=== PATIENT | female | born 1940 | race Caucasian/White ===

== ENCOUNTER → 2020-04-07 | Outpatient (CLI) | payer MEDICARE | END | disposition home or self-care (01) | LOC: LABWHC1 08:47 | PROVIDERS: ATTEND Internal Medicine Gastroenterology | DX: Z11.59 Encounter for screening for other viral diseases (principal) | CPT/HCPCS: 87635 ==

== ENCOUNTER 2020-04-10 09:08 | Day surgery (SDC) | payer MEDICARE ==
[2020-04-09 10:52] VITALS: BMI 35.0
[~2020-04-10 09:08] MED LIST: LACTATED RINGERS 1,000 ML IV SCH; LIDOCAINE 1% (10MG/ML) FOR IV START INTRADERMA PRN
[2020-04-10 09:37] VITALS: TEMP 97.7
[2020-04-10] MEDS ORDERED: LACTATED RINGERS 1,000 ML IV ONE (09:37)
[2020-04-10 09:40] LABS: Glucose,Whole Blood 80 mg/dL (75-99)
[2020-04-10] MEDS ORDERED: PROPOFOL 10 MG/ML 20 ML VIAL IV ONE (10:56)
--- NOTE | 2020-04-10 11:28 | P.PCN ---
Date of Procedure: 04/10/20 Procedure(s) Performed: BRIEF HISTORY: Patient is a 79-year-old pleasant white female scheduled for an elective colonoscopy as a part of evaluation of chronic diarrhea for the last several months duration. He has 3-4 loose watery bowel movements daily. No blood or mucus in the stool. Her last colonoscopy was 9 years ago. PROCEDURE PERFORMED: Colonoscopy with random biopsy and snare polypectomy. PREOPERATIVE DIAGNOSIS: Chronic diarrhea of 1 year duration. IV sedation per Anesthesia. PROCEDURE: After informed consent was obtained, the patient, was brought into the endoscopy unit. IV sedation was administered by Anesthesia under continuous monitoring. Digital rectal examination was normal. Initially the Olympus CF-160 flexible video colonoscope was then inserted in the rectum, gradually advanced into the cecum without any difficulty. Careful examination was performed as the scope was gradually being withdrawn. Ileocecal valve and the appendiceal orifice were visualized and appeared normal. Prep was excellent. Mucosa of the cecum, ascending colon, appeared normal. The transverse colon there was a 5 mm polyp removed by snare polypectomy. In the sigmoid colon there was another 5 mm polyp removed by snare polypectomy. Rest of the transverse colon, descending colon, sigmoid colon, appeared normal. In the distal rectum 5 cm proximal to the dentate line there was a 4 cm broad-based polyp identified that was removed in a piecemeal fashion and only 80% the polyp was removed. Random biopsies were done from ascending and descending colon to rule out microscopic/collagenous colitis Retroflexion was performed in the rectum and no lesions were seen. The patient tolerated the procedure well. IMPRESSION: 4 cm broad-based distal rectal polyp about five cm proximal to the dentate line status post piecemeal snare polypectomy and approximately 80% the polyp removed 5 mm and 1 cm sigmoid colon polyps status post snare polypectomy 5 mm transverse colon polyp status post RECOMMENDATIONS: Findings of this examination were discussed with the patient as well as a family. She was advised to follow with the biopsy results. She'll be seen in office in 2 weeks..l will plan a repeat flexible sigmoidoscopy in 2-3 months based on the biopsy
[2020-04-10 11:34] VITALS: RESP 16
[2020-04-10 11:46] VITALS: BP 180/90; PULSE 73
== END 2020-04-10 12:11 | disposition home or self-care (01) ==
LOC: ORWHC2ENDO 09:08
PROVIDERS: ATTEND Internal Medicine Gastroenterology
DX: D12.5 Benign neoplasm of sigmoid colon (principal); D12.8 Benign neoplasm of rectum; K62.89 Other specified diseases of anus and rectum; K21.9 Gastro-esophageal reflux disease without esophagitis; I10 Essential (primary) hypertension; E78.5 Hyperlipidemia, unspecified; G47.33 Obstructive sleep apnea (adult) (pediatric); Z97.2 Presence of dental prosthetic device (complete) (partial); Z79.4 Long term (current) use of insulin; Z79.899 Other long term (current) drug therapy; Z88.5 Allergy status to narcotic agent
CPT/HCPCS: 88305; 45380; 45385; J2704

== ENCOUNTER 2020-06-05 06:38 | Day surgery (SDC) | payer MEDICARE ==
[2020-06-03 11:05] VITALS: BMI 36.8
[2020-06-05 07:18] LABS: Glucose,Whole Blood 111 mg/dL (75-99)
[2020-06-05 07:20] VITALS: TEMP 98.6
[2020-06-05] MEDS ORDERED: LIDOCAINE 1% (10MG/ML) FOR IV START INTRADERMA ONE (07:20)
[2020-06-05] MEDS ORDERED: LIDOCAINE 1% INJ 10MG/ML (20 ML MDV) ONE (07:28)
[2020-06-05] MEDS ORDERED: PROPOFOL 10 MG/ML 20 ML VIAL IV ONE (07:28)
[2020-06-05 07:54] VITALS: RESP 16
--- NOTE | 2020-06-05 07:54 | P.PCN ---
Date of Procedure: 06/05/20 Procedure(s) Performed: Patient is a 79-year-old white female schedule for flexible sigmoidoscopy as part of follow-up of large rectal polyp that was noted on colonoscopy in March 2020. 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 The patient is scheduled for a repeat sigmoidoscopy for complete endoscopic polypectomy Preoperative diagnosis Follow-up large rectal polyp noted in March 2020; Procedure Flexible sigmoidoscopyWith snare polypectomy and argon plasma coa gulation Anesthesia MAC Description of procedure: The patient was brought into the endoscopy unit IV conscious sedation was administered by anesthesia and continuous monitoring. Initial digital rectal examination was normal. The Olympus CF 160 video colonoscope was then inserted into the rectum and gradually advanced to the splenic flexure. Careful examination was performed as the scope was gradually being withdrawn.Because of the descending colon; appeared normal. In the mid rectum there was a 2.5 cm broad-based sessile polyp identified at this time snare polypectomy performed and almost complete polypectomy accomplished. Following this argon plasma coagulation was performed. Retroflexion was performed in the rectum and no lesions were noted. Patient tolerated the procedure well. Impression 2.5 cm with Anna mid rectal polyp status post snare polypectomy followed by argon plasma coagulation with complete polypectomy as described above Sigmoid colon and descending colon appeared normal Recommendations: Findings of this examination were discussed with the patient as well as his family. She was advised to follow with the biopsy results. She will have a repeat sigmoidoscopy in 6 months.
[2020-06-05 08:09] LABS: Glucose,Whole Blood 109 mg/dL (75-99)
[2020-06-05 08:19] VITALS: BP 176/88; PULSE 75
== END 2020-06-05 08:45 | disposition home or self-care (01) ==
LOC: ORWHC2ENDO 06:38
PROVIDERS: ATTEND Internal Medicine Gastroenterology
DX: D12.8 Benign neoplasm of rectum (principal); I10 Essential (primary) hypertension; E78.5 Hyperlipidemia, unspecified; E11.9 Type 2 diabetes mellitus without complications; G47.33 Obstructive sleep apnea (adult) (pediatric); F17.210 Nicotine dependence, cigarettes, uncomplicated; K21.9 Gastro-esophageal reflux disease without esophagitis; Z88.5 Allergy status to narcotic agent; Z79.899 Other long term (current) drug therapy; Z79.4 Long term (current) use of insulin
CPT/HCPCS: 45338; 88305; J2001; J2704; 45385

== ENCOUNTER 2021-03-12 07:59 | Day surgery (SDC) | payer MEDICARE ==
[2021-03-10 12:48] VITALS: BMI 36.3
[~2021-03-12 07:59] MED LIST changes: -LIDOCAINE 1% (10MG/ML) FOR IV START INTRADERMA PRN
[2021-03-12 08:33] VITALS: TEMP 97.9
[2021-03-12 08:47] LABS: Glucose,Whole Blood 88 mg/dL (75-99)
[2021-03-12] MEDS ORDERED: LIDOCAINE 1% (10MG/ML) FOR IV START INTRADERMA ONE (08:47)
[2021-03-12] MEDS ORDERED: PROPOFOL 10 MG/ML 20 ML VIAL IV ONE (09:07)
[2021-03-12] MEDS ORDERED: LIDOCAINE 1% INJ 10MG/ML (20 ML MDV) ONE (09:07)
--- NOTE | 2021-03-12 09:18 | P.PCN ---
Date of Procedure: 03/12/21 Procedure(s) Performed: BRIEF HISTORY: Patient is a 80-year-old pleasant white female scheduled for an elective sigmoidoscopy as a part of follow-up of large rectal polyp noted in March 2020. Biopsies revealed tubular villous adenoma with focal high-grade dysplasia. She had a repeat sigmoidoscopy in May 2020 and there was a 2.5 cm residual polyp that was removed by snare polypectomy followed by argon plasma coagulation. She is scheduled for a repeat sigmoidoscopy today PROCEDURE PERFORMED: Flexible sigmoidoscope PREOPERATIVE DIAGNOSIS: Follow-up large rectal polyp noted on initial colonoscopy in March 2020. IV sedation per Anesthesia. PROCEDURE: After informed consent was obtained, the patient, was brought into the endoscopy unit. IV sedation was administered by Anesthesia under continuous monitoring. Digital rectal examination was normal. Initially the Olympus CF-160 flexible video colonoscope was then inserted in the rectum, gradually advanced into the splenic flexure. Careful examination was performed. Prep was excellent. Mucosa of the descending colon, sigmoid colon and rectum appeared normal. There was no evidence of residual polyp noted in the rectum. Retroflexion was performed in the rectum and no lesions were noted. Patient tolerated the procedure well. Impression: No evidence of residual rectal polyp Normal colon up to the hepatic flexure RECOMMENDATIONS: Findings of this examination were discussed with the patient as well as a family. She was advised to have a repeat surveillance colonoscopy in 3 years..
[2021-03-12 09:29] LABS: Glucose,Whole Blood 83 mg/dL (75-99)
[2021-03-12 10:19] VITALS: BP 137/78; PULSE 78; RESP 18
== END 2021-03-12 10:21 | disposition home or self-care (01) ==
LOC: ORWHC2ENDO 07:59
PROVIDERS: ATTEND Internal Medicine Gastroenterology
DX: Z87.19 Personal history of other diseases of the digestive system (principal); I10 Essential (primary) hypertension; E78.5 Hyperlipidemia, unspecified; E11.9 Type 2 diabetes mellitus without complications; G47.33 Obstructive sleep apnea (adult) (pediatric); M19.90 Unspecified osteoarthritis, unspecified site; Z79.84 Long term (current) use of oral hypoglycemic drugs; Z79.899 Other long term (current) drug therapy; Z88.5 Allergy status to narcotic agent
CPT/HCPCS: 45330; J2001; J2704